=== PATIENT | male | born 1970 | race Two or more races ===

== ENCOUNTER → 2024-09-05 | Outpatient (CLI) | payer OTHER, MEDICAID, SELFPAY ==
--- NOTE | 2024-09-05 | XR_ITS ---
Examination: PA lateral chest 2 views Technique: Upright PA lateral chest 2 views Exam date and time: September 05, 2024 1318 hrs. Comparison August 26, 2023 Indications: Coughing beginning 2 weeks ago Findings: Early bilateral perihilar pneumonia Mild prominence left ventricle Prominent osteopenia Impression: Early bilateral perihilar pneumonia
== END | disposition home or self-care (01) ==
PROVIDERS: PCP Nurse Practitioner Primary Care; Referring Provider Nurse Practitioner Primary Care; Visit Provider Nurse Practitioner Primary Care
DX: J18.9 Pneumonia, unspecified organism (principal)
CPT/HCPCS: 71046